=== PATIENT | male | born 2005 | race Caucasian/White ===

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

== ENCOUNTER → 2023-01-09 | Outpatient (CLI) | payer OTHER ==
[2023-01-09 13:11] LABS: ALKALINE PHOSPHATASE 107 U/L (46-116); BUN 8 mg/dl (9-23); CHLORIDE 100 mmol/L (98-107); POTASSIUM 4.1 mmol/L (3.4-5.1); SGPT/ALT 37 U/L (10-49); TOTAL PROTEIN 8.8 gm/dL (6.0-8.0)
== END | disposition home or self-care (01) ==
LOC: LAB 12:29
PROVIDERS: ATTEND Student in an Organized Health Care Education/Training Program
DX: E03.8 Other specified hypothyroidism (principal); R25.3 Fasciculation

== ENCOUNTER → 2024-05-25 | Outpatient (CLI) | payer OTHER ==
[2024-05-25 10:00] LABS: BASO % 0.5 % (0.0-1.0); EOS # 0.1 10*3/uL (0.0-0.4); EOS % 0.8 % (1.0-4.0); LYMPH # 2.3 10*3/uL (1.3-4.4); LYMPH % 26.7 % (27.0-41.0); MEAN CELL VOLUME 73.4 fl (80.0-94.0); MEAN CORPUSCULAR HGB 22.2 pg (27.0-31.0); MEAN CORPUSCULAR HGB CONC 30.3 g/dl (33.0-37.0); MONO # 0.7 10*3/uL (0.1-1.0); MONO % 7.7 % (3.0-9.0); NEUT # 5.5 10*3/uL (2.3-7.9); NEUT % 63.8 % (47.0-73.0); PLATELET COUNT AUTOMATED 464 10*3/uL (130-400); RED BLOOD COUNT 4.77 10*6/uL (4.50-5.90); RED CELL DISTRI WIDTH 18.3 % (0-14.5); WHITE BLOOD COUNT 8.6 10*3/uL (4.8-10.8)
[2024-05-25 10:22] LABS: ALKALINE PHOSPHATASE 99 U/L (46-116); BUN < 5 mg/dl (9-23); CHLORIDE 103 mmol/L (98-107); POTASSIUM 4.2 mmol/L (3.4-5.1); SGPT/ALT 25 U/L (5-49); TOTAL PROTEIN 8.6 gm/dL (6.0-8.0)
== END | disposition home or self-care (01) ==
LOC: LAB 09:44
PROVIDERS: Student in an Organized Health Care Education/Training Program; ATTEND Family Medicine
DX: R07.89 Other chest pain (principal); R05.3 Chronic cough

== ENCOUNTER → 2024-05-30 | Outpatient (CLI) | payer OTHER ==
[2024-05-30 10:26] LABS: BASO % 0.5 % (0.0-1.0); EOS # 0.1 10*3/uL (0.0-0.4); EOS % 0.8 % (1.0-4.0); HEMATOCRIT 34.2 % (42.0-52.0); LYMPH # 2.4 10*3/uL (1.3-4.4); LYMPH % 28.2 % (27.0-41.0); MEAN CELL VOLUME 74.2 fl (80.0-94.0); MEAN CORPUSCULAR HGB 21.9 pg (27.0-31.0); MEAN CORPUSCULAR HGB CONC 29.5 g/dl (33.0-37.0); MONO # 0.7 10*3/uL (0.1-1.0); MONO % 8.4 % (3.0-9.0); NEUT # 5.1 10*3/uL (2.3-7.9); NEUT % 61.6 % (47.0-73.0); PLATELET COUNT AUTOMATED 465 10*3/uL (130-400); RED BLOOD COUNT 4.61 10*6/uL (4.50-5.90); RED CELL DISTRI WIDTH 17.6 % (0-14.5); WHITE BLOOD COUNT 8.3 10*3/uL (4.8-10.8)
[2024-05-30 11:06] LABS: ALKALINE PHOSPHATASE 167 U/L (46-116); BUN 7 mg/dl (9-23); CHLORIDE 101 mmol/L (98-107); POTASSIUM 4.2 mmol/L (3.4-5.1); SGPT/ALT 73 U/L (5-49); TOTAL PROTEIN 8.6 gm/dL (6.0-8.0)
== END | disposition home or self-care (01) ==
LOC: LAB 09:51
PROVIDERS: Student in an Organized Health Care Education/Training Program; ATTEND Family Medicine
DX: D50.9 Iron deficiency anemia, unspecified (principal)

== ENCOUNTER → 2024-06-06 | Outpatient (CLI) | payer OTHER ==
[2024-06-06 12:54] LABS: BASO % 0.5 % (0.0-1.0); EOS # 0.1 10*3/uL (0.0-0.4); EOS % 0.6 % (1.0-4.0); LYMPH # 2.2 10*3/uL (1.3-4.4); LYMPH % 25.8 % (27.0-41.0); MEAN CELL VOLUME 73.6 fl (80.0-94.0); MEAN CORPUSCULAR HGB 22.3 pg (27.0-31.0); MEAN CORPUSCULAR HGB CONC 30.3 g/dl (33.0-37.0); MEAN PLATELET VOLUME 9.3 fl (9.6-12.3); MONO # 0.5 10*3/uL (0.1-1.0); MONO % 6.2 % (3.0-9.0); NEUT # 5.7 10*3/uL (2.3-7.9); NEUT % 66.5 % (47.0-73.0); PLATELET COUNT AUTOMATED 517 10*3/uL (130-400); RED BLOOD COUNT 4.62 10*6/uL (4.50-5.90); RED CELL DISTRI WIDTH 17.8 % (0-14.5); WHITE BLOOD COUNT 8.5 10*3/uL (4.8-10.8)
[2024-06-06 13:29] LABS: ALKALINE PHOSPHATASE 194 U/L (46-116); BUN 7 mg/dl (9-23); CHLORIDE 101 mmol/L (98-107); POTASSIUM 3.9 mmol/L (3.4-5.1); SGPT/ALT 53 U/L (5-49); TOTAL PROTEIN 8.8 gm/dL (6.0-8.0)
[2024-06-07 08:10] LABS: HBSAG Negative (Negative); HEP B CORE AB, IGM Negative (Negative); HEPATITIS C ANTIBODY Non Reactive (Non Reactive)
[2024-06-07 09:08] LABS: TOTAL PROTEIN, SERUM 7.6 g/dL (6.0-8.5)
[2024-06-07 14:09] LABS: ENDOMYSIAL ANTIBODY IgA Negative (Negative); t-TRANSGLUTAMINASE (tTG) IGA <2 U/mL (0-3); t-TRANSGLUTAMINASE (tTG) IgG <2 U/mL (0-5)
[2024-06-07 16:09] LABS: A/G RATIO 0.5 (0.7-1.7); ALBUMIN 2.6 g/dL (2.9-4.4); ALPHA-1-GLOBULIN 0.5 g/dL (0.0-0.4); ALPHA-2-GLOBULIN 1.6 g/dL (0.4-1.0); BETA GLOBULIN 1.2 g/dL (0.7-1.3); GAMMA GLOBULIN 1.6 g/dL (0.4-1.8)
[2024-06-10 16:08] LABS: ALBUMIN, URINE 38.1 % (.); ALPHA-1-GLOBULIN, URINE 8.5 % (.); ALPHA-2-GLOBULIN, URINE 16.1 % (.); BETA GLOBULIN, URINE 21.6 % (.); GAMMA GLOBULIN, URINE 15.6 % (.); M-SPIKE, % Not Observed % (Not Observed); PROTEIN,TOTAL - URINE RANDOM 37.6 mg/dL (Not Estab.)
[2024-06-12 20:07] LABS: DQ2 Negative (.); DQ8 Negative (.)
== END | disposition home or self-care (01) ==
LOC: LAB 12:16
PROVIDERS: ATTEND Student in an Organized Health Care Education/Training Program
DX: D50.9 Iron deficiency anemia, unspecified (principal); R77.8 Other specified abnormalities of plasma proteins; R74.8 Abnormal levels of other serum enzymes

== ENCOUNTER → 2024-09-26 | Outpatient (CLI) | payer OTHER ==
[2024-09-26 13:49] LABS: BASO # 0.1 10*3/uL (0.0-0.1); BASO % 0.4 % (0.0-1.0); EOS # 0.1 10*3/uL (0.0-0.4); EOS % 0.6 % (1.0-4.0); HEMATOCRIT 31.3 % (42.0-52.0); MEAN CELL VOLUME 74.5 fl (80.0-94.0); MEAN CORPUSCULAR HGB 21.2 pg (27.0-31.0); MEAN CORPUSCULAR HGB CONC 28.4 g/dl (33.0-37.0); MEAN PLATELET VOLUME 8.5 fl (9.6-12.3); MONO # 0.7 10*3/uL (0.1-1.0); MONO % 5.2 % (3.0-9.0); NEUT # 9.1 10*3/uL (2.3-7.9); PLATELET COUNT AUTOMATED 536 10*3/uL (130-400); RED CELL DISTRI WIDTH 19.1 % (0-14.5); WHITE BLOOD COUNT 12.4 10*3/uL (4.8-10.8)
[2024-09-26 14:14] LABS: ALKALINE PHOSPHATASE 259 U/L (46-116); BUN 6 mg/dl (9-23); CHLORIDE 103 mmol/L (98-107); POTASSIUM 3.8 mmol/L (3.4-5.1); SGPT/ALT 91 U/L (5-49); TOTAL PROTEIN 8.7 gm/dL (6.0-8.0)
[2024-09-27 12:08] LABS: IMMUNOGLOBULIN G, QNT 2191 mg/dL (603-1613); IMMUNOGLOBULIN M, QNT 83 mg/dL (20-172)
[2024-09-27 14:08] LABS: FREE KAPPA LIGHT CHAINS 79.5 mg/L (3.3-19.4); FREE LAMBDA LIGHT CHAINS 71.4 mg/L (5.7-26.3); KAPPA/LAMBDA RATIO 1.11 (0.26-1.65)
== END | disposition home or self-care (01) ==
LOC: LAB 12:50 → US 13:00
PROVIDERS: Student in an Organized Health Care Education/Training Program; ATTEND Family Medicine
DX: E61.1 Iron deficiency (principal); R79.89 Other specified abnormal findings of blood chemistry; D64.9 Anemia, unspecified

== ENCOUNTER → 2024-09-27 | Outpatient (CLI) | payer OTHER ==
[2024-09-30 10:05] LABS: ANTI-DSDNA ANTIBODIES <1 IU/mL (0-9); ANTI-RNP ANTIBODIES 1.4 AI (0.0-0.9); ANTICHROMATIN ANTIBODIES 0.2 AI (0.0-0.9); ANTISCLERODERMA-70 AB <0.2 AI (0.0-0.9); SJOGREN ANTI-SS-A 0.2 AI (0.0-0.9); SJOREN AB, ANTI-SS-B <0.2 AI (0.0-0.9)
== END | disposition home or self-care (01) ==
LOC: LAB 15:51
PROVIDERS: Student in an Organized Health Care Education/Training Program; ATTEND Family Medicine
DX: R79.89 Other specified abnormal findings of blood chemistry (principal); J06.9 Acute upper respiratory infection, unspecified; D63.8 Anemia in other chronic diseases classified elsewhere; D64.9 Anemia, unspecified

== ENCOUNTER → 2024-10-15 | Outpatient (CLI) | payer OTHER ==
[~2024-10-15] MED LIST changes: +Albuterol Sulfate 2.5 MG/3 ML VIAL NEB ONE
== END | disposition home or self-care (01) ==
LOC: CP 10-08 13:30
PROVIDERS: ATTEND Family Medicine
DX: R79.89 Other specified abnormal findings of blood chemistry (principal); R05.3 Chronic cough